=== PATIENT | female | born 1990 | race American Indian/Alaskan Native ===

== ENCOUNTER 2019-02-03 07:34 | Emergency (ER) | payer MEDICAID, OTHER ==
[2019-02-03] MEDS ORDERED: XANAX PO ONE (09:22)
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
[2019-02-03 11:08] LABS: HCG Qualitative,Urine Negative (Negative)
--- NOTE | 2019-02-03 13:41 | Cat Scan Report ---
PROCEDURE: CT HEAD/BRAIN WO CON TECHNIQUE: CT of the head was performed without intravenous contrast. HISTORY: swelling to left frontal COMPARISONS: None FINDINGS: The ventricles are normal in position and shape. The ventricles are nondilated. No intracranial hemorrhage, mass, mass effect or evidence of acute ischemic infarct. The basilar cisterns are patent. The paranasal sinuses are clear. The mastoid air cells are clear. The orbits are intact. The calvarium is intact. There is left frontal extracranial soft tissue swelling. IMPRESSION: No acute intracranial abnormality. Left frontal extracranial soft tissue swelling. This document is electronically signed by Shelley Johnson., February 03 2019 01:39:11 PM ET
[2019-02-03] MEDS ORDERED: TORADOL IM ONE (13:51)
[2019-02-03 14:10] VITALS: BP 116/70
== END 2019-02-03 14:08 | disposition home or self-care (01) ==
LOC: ED 07:34
DX: S00.83XA Contusion of other part of head, initial encounter (principal); V89.2XXA Person injured in unspecified motor-vehicle accident, traffic, initial encounter; Y93.89 Activity, other specified; Y92.89 Other specified places as the place of occurrence of the external cause; Y99.8 Other external cause status
CPT/HCPCS: 70450; 81025; 99284; J1885